=== PATIENT | male | born 1970 | race African-American/Black ===

== ENCOUNTER 2016-10-29 15:32 | Emergency (ER) | payer OTHER ==
[~2016-10-29] VITALS: Ht 180.3 cm; Wt 86.0 kg
[2016-10-29] MEDS ORDERED: IBUPROFEN 600MG TABLET PO ONE (19:45)
[2016-10-29 19:55] VITALS: BP 140/80
== END 2016-10-29 19:56 | disposition home or self-care (01) ==
LOC: ER 16:13
DX: S62.665A Nondisplaced fracture of distal phalanx of left ring finger, initial encounter for closed fracture (principal); G40.909 Epilepsy, unspecified, not intractable, without status epilepticus; Z86.011 Personal history of benign neoplasm of the brain; Z98.890 Other specified postprocedural states; W22.8XXA Striking against or struck by other objects, initial encounter; Y93.89 Activity, other specified; Y92.018 Other place in single-family (private) house as the place of occurrence of the external cause
CPT/HCPCS: 29130; 73130; 99284

== ENCOUNTER 2020-05-03 11:25 | Emergency (ER) | payer OTHER ==
[~2020-05-03] VITALS: Ht 182.9 cm; Wt 85.0 kg
[2020-05-03 11:38] VITALS: BP 114/89
[2020-05-03 12:38] LABS: BASOPHILS % 0.3 % (0.0-2.0); EOSINOPHILS % 0.3 % (0.0-5.0); HEMATOCRIT. 44.1 % (42.0-52.0); LYMPHOCYTES % 7.6 % (20.0-50.0); MEAN CORPUSCULAR HEMOGLOBIN 31.6 pg (28.0-32.0); MEAN CORPUSCULAR VOLUME 92.7 fL (80.0-94.0); MEAN PLATELET VOLUME 10.8 fl (7.4-10.4); MONOCYTES % 3.5 % (2.0-8.0); NEUTROPHILS % 88.3 % (40.0-76.0); PLATELET 161 x1000/uL (130-400); RED BLOOD CELL COUNT 4.75 mill/uL (4.7-6.1); RED CELL DISTRIBUTION WIDTH 12.5 % (11.6-14.6)
[2020-05-03 12:45] LABS: CHLORIDE 109 mEq/L (98-107)
[2020-05-03 12:56] LABS: ETHANOL BLOOD < 10 mg/dL
[2020-05-03] MEDS ORDERED: PHENYTOIN SODIUM EXTENDED 100MG CAPSULE PO ONE (14:00)
[2020-05-03 14:25] LABS: CLARITY URINE CLEAR (CLEAR); COLOR URINE YELLOW (YELLOW); KETONES URINE TRACE (NEGATIVE); LEUKOCYTE ESTERASE URINE 1+ (NEGATIVE); NITRITE URINE NEGATIVE (NEGATIVE); OCCULT BLOOD URINE 3+ (NEGATIVE); PH URINE 5.5 (4.5-8.0); PROTEIN URINE 2+ (NEGATIVE); SPECIFIC GRAVITY URINE 1.019 (1.005-1.030); UROBILINOGEN URINE 0.2 E.U./dL (0.2-1.0)
[2020-05-03 14:55] LABS: *AMPHETAMINES SCREEN URINE NEGATIVE (NEGATIVE); *BARBITURATES SCREEN URINE NEGATIVE (NEGATIVE); *BENZODIAZEPINES SCREEN URINE NEGATIVE (NEGATIVE); *COCAINE SCREEN URINE NEGATIVE (NEGATIVE)
[2020-05-03 14:56] LABS: CANNABINOID URINE SCREEN PRESUMTIVE POSITIVE (NEGATIVE); METHADONE URINE SCREEN NEGATIVE (NEGATIVE); PHENCYCLIDINE URINE SCREEN NEGATIVE (NEGATIVE)
[2020-05-03 14:57] LABS: OPIATES URINE SCREEN NEGATIVE (NEGATIVE)
== END 2020-05-03 14:38 | disposition home or self-care (01) ==
LOC: ER 12:03
DX: R56.9 Unspecified convulsions (principal)
CPT/HCPCS: 36415; 80053; 80185; 80305; 80320; 81003; 85025; 93005; 99284; G0480